=== PATIENT | male | born 1980 | race Caucasian/White ===

== ENCOUNTER 2025-02-01 11:21 | Emergency (ER) | payer OTHER, SELFPAY ==
[2025-02-01 11:28] VITALS: BP 173/111; PULSE 78; RESP 16; TEMP 36.8; O2SAT 98; BMI 32.5
--- NOTE | 2025-02-01 11:37 | XRR_ITS ---
PROCEDURE INFORMATION: Exam: XR Right Elbow Exam date and time: 02/01/2025 11:48 AM Age: 44 years old Clinical indication: Right; Pain in RT elbow TECHNIQUE: Imaging protocol: Radiologic exam of the right elbow. Views: 3 or more views. COMPARISON: No relevant prior studies available. FINDINGS: Bones/joints: Normal. Soft tissues: Normal. XR/XR elbow RT min 3V* [id number] IMPRESSION: No acute findings.
--- NOTE | 2025-02-01 11:40 | ED_ITS ---
HPI - Extremity Problem General: Chief complaint: Extremity Injury, Upper Stated complaint: va sent for torn bicep Time Seen by Provider: 02/01/25 11:23 History of Present Illness: 44-year-old male presents to the emergen cy room with complaints of arm pain. He was doing some heavy lifting last night felt a popping sensation in his right arm has some deformity of the biceps muscle. Moderate pain denies any other injury. Related Data Previous Rx's ?Medication ?Instructions ?Recorded diclofenac sodium 75 mg 75 mg PO Q12H PRN pain #20 t abs 02/01/25 tablet,delayed release Allergies Allergy/AdvReac Type Severity Reaction Status Date / Time No Known Allergies Allergy Verified 02/01/25 11:30 Physical Exam Extremity: OTHER: Distorted biceps muscle in the right arm. Hook test positive patient has disruption of the distal bicep tendon. Course Vital Signs: Vital signs: Vital Signs Temperature 98.3 F 02/01/25 11:28 Pulse Rate 74 02/01/25 12:04 Respiratory Rate 16 02/01/25 11:28 Blood Pressure 161/101 02/01/25 12:04 Pulse Oximetry 99 02/01/25 12:04 Oxygen Delivery Me thod Room Air 02/01/25 11:28 MDM - Extremity (Nontraumatic) Medical Decision Making Discussed with Dr. Townsend who is on-call referred to him early next week. Recommends outpatient follow-up. X-ray does not show any avulsion fracture Lab Data Radiology Impressions Elbow X-Ray 02/01/25 11:37 IMPRESSION: No acute findings. All radiology interpretation(s) finalized by discharge Discharge Plan Discharge Patient Disposition: Home Clinical Impression: Tear of distal tendon of biceps Condition: Stable Prescriptions: New diclofenac sodium 75 mg tablet,delayed release (DR/EC) 75 mg PO Q12H PRN (Reason: pain) Qty: 20 0RF Discharge Orders: Discharge ED (Routine); Ordered 02/01/25 Ordered By: Diomedes Henderson Discharge Diet: Usual diet Discharge Activity: Resume usual activity Patient Instructions: Opioid Safety, Pain Management, Patient Portal & Bennie Instructions Activity Restrictions/Additional Instructions: Thank you for choosing [facility] for your healthcare needs today. It is very important that you follow up as instructed or that you return to the Emergency Department should you have concerns or if your condition changes or worsens in any way. Emergency department visits are focused on emergent conditions, in some cases you may require further evaluation on an outpatient basis. You were seen in the emergency room for a biceps tendon rupture. Placed in a sling for comfort you can use diclofenac as needed. facilities project manager will make arrangements for you to follow-up with orthopedics in the next 2 to 3 days. (Please note that included in your discharge packet is information concerning opioid safety and pain management. This information is given to all patients were discharged from the ER regardless of their discharge diagnosis or the medicines they usually take or are prescribed.) Print Language: Slovenian Coding Level of Care Code ED Heading Up Machine Operator for Lisa Wen
[2025-02-01 12:04] VITALS: BP 161/101; PULSE 74; O2SAT 99
--- NOTE | 2025-02-01 12:46 | DCPLANNER ---
messaged ortho for er f/u
--- NOTE | 2025-02-04 12:49 | PC.SOCIAL ---
Records sent to [place] for auth for ortho f/u.
== END 2025-02-01 12:05 | disposition home or self-care (01) ==
PROVIDERS: Emergency Provider Family Medicine
DX: S46.211A Strain of muscle, fascia and tendon of other parts of biceps, right arm, initial encounter (principal); X50.0XXA Overexertion from strenuous movement or load, initial encounter
CPT/HCPCS: 73080; 96372; 99284; A4565; J1885

== ENCOUNTER → 2025-02-05 09:19 | Outpatient (BNVA) | payer OTHER, SELFPAY | PROVIDERS: PCP Family Medicine Geriatric Medicine; Visit Provider Orthopaedic Surgery | DX: S46.211A Strain of muscle, fascia and tendon of other parts of biceps, right arm, initial encounter (principal); X58.XXXA Exposure to other specified factors, initial encounter | CPT/HCPCS: 99204 ==

== ENCOUNTER 2025-02-07 09:13 | Outpatient (CLI) | payer OTHER, SELFPAY ==
--- NOTE | 2025-02-07 10:15 | MRR_ITS ---
PROCEDURE INFORMATION: Exam: MR Right Upper Extremity Joint Without Contrast; Elbow Exam date and time: 02/07/2025 9:28 AM Age: 44 years old Clinical indication: Injury or trauma; Swelling (edema); Arm, upper and elbow; Right; Injury date: 01/31/25; Injury details: Lifting concrete felt snap in elbow/arm. ; Additional info: Right distal bicep tendon tear, prior authorization in progress TECHNIQUE: Imaging protocol: Magnetic resonance imaging of the right upper extremity without contrast. Exam focused on the elbow. COMPARISON: CR XR elbow RT min 3V* [id number] 02/01/2025 11:48 AM FINDINGS: Bones/joints: No acute fracture is seen. Ulnar (medial) collateral ligament: The ulnar collateral ligament is intact. Radial collateral ligament of the elbow: The radial collateral ligament is intact. The lateral ulnar collateral ligament is intact. Annular ligament of the radius: The annular ligament is not well assessed. Tendon of the biceps brachii: There is a complete tear of the biceps tendon with tendinous retraction by approximately 6 cm. There is mild edema/fluid and blood products at site of tendon tear. Tendon of the brachialis: Mild strain of the brachialis tendon. Triceps tendon: The triceps tendon is intact. Common flexor tendon: The common flexor tendon is intact. Common extensor tendon: Moderate tendinosis of the common extensor tendon) with partial-thickness tearing proximally. Soft tissues: Mild ventral subcutaneous edema. MR/MR elbow RT wo con* [id number] IMPRESSION: 1. Complete tear of the biceps tendon with tendinous retraction by approximately 6 cm. Mild edema/fluid and blood products at site of tendon tear. 2. Mild strain of the brachialis tendon. 3. Moderate tendinosis of the common extensor tendon) with partial-thickness tearing proximally.
== END 2025-02-07 09:14 | disposition home or self-care (01) ==
LOC: RAD 09:14
PROVIDERS: PCP Family Medicine Geriatric Medicine; Visit Provider Orthopaedic Surgery
DX: S46.211D Strain of muscle, fascia and tendon of other parts of biceps, right arm, subsequent encounter (principal); X58.XXXD Exposure to other specified factors, subsequent encounter
CPT/HCPCS: 73221; 99213

== ENCOUNTER 2025-02-08 10:34 | Day surgery (SDC) | payer OTHER, SELFPAY ==
[2025-02-08] VITALS (15 sets, daily range): BP systolic 109–141; BP diastolic 73–106; PULSE 75–89; RESP 10–20; TEMP 36.6–37.6; O2SAT 93–100; BMI 32.5
--- NOTE | 2025-02-08 10:53 | P.ANESASSM_ITS ---
Pre-Anesthetic Assessment Height/Weight: Height 1.78 m Operation Date: 02/08/25 12:00 Proposed Procedures p distal open bicep tendon repair(Right) - Mack Townsend MD Familial anesthetic complications: None Was Beta Phuong taken within 24 hours: N/A Was Clonidine taken within 24 hours: N/A Last intake: > 8 hrs Social No alcohol and No tobacco Exam alert, oriented x 3, clear to auscultation bilaterally and regular rate & rhythm Airway Dentition: full Anesthetic Plan ASA status: 3 Anesthesia: General Risk of > 500 ml blood loss (7ml/kg in children): No Medications/Allergies Home Medications ?Medication ?Instructions ?Recorded ?Confirmed ?Last Taken ?Type diclofenac sodium 75 mg 75 mg PO Q12H PRN pain #20 t abs 02/01/25 02/08/25 Unknown Rx tablet,delayed release Allergies Allergy/AdvReac Type Severity Reaction Status Date / Time No Known Allergies Allergy Verified 02/08/25 10:45 PFSH Anesthesia Social History Smoking and tobacco/nicotine status: never used tobacco/nicotine
[2025-02-08] MEDS: ceFAZolin 2,000 mg SDV 2000 MG IVP (12:13)
--- NOTE | 2025-02-08 12:15 | W.PM.OPSUD ---
Surgery/Procedure H&P Update DATE OF PROCEDURE: February 08, 2025 DATE H&P PERFORMED: 02/01/25 H&P UPDATE INFORMATION: I have reviewed H&P completed within last 30 days, I have examined patient prior to procedure and No changes to prior documentation PREOP DIAGNOSIS: Torn distal biceps tendon right arm PLANNED PROCEDURE: Operation Date: 02/08/25 12:00 Proposed Procedures p distal open bicep tendon repair(Right) - Mack Townsend MD
[2025-02-08] MEDS: BUPivacaine 0.5% INJ 30 mL XX (13:19)
--- NOTE | 2025-02-08 13:19 | PM.OP ---
Operative Report Date of procedure: February 08, 2025 Surgeon: Mack Townsend MD Procedure: Preoperative diagnosis: Ruptured proximal biceps tendon right arm Postoperative diagnosis: Same Procedure: Open repair of distal biceps tendon right arm Surgeon: Mack Townsend MD Cushion Assembler: JALEN Rubalcava's assistance was necessary for assistance during the procedure, wound closure, dressing placement, placement of brace Anesthesia: General EBL: None Tourniquet time: 31 minutes at 250 mmHg Indications: Maximus is a 44-year-old white male who was lifting a heavy piece of concrete approxi-1 week ago when he felt something given his right elbow and was unable to hold weight. Subsequently seen in the emergency room where he was diagnosed he had a distal biceps tendon tear of the right upper extremity. Subsequently followed up in the orthopedic clinics and clinical exam was consistent with this. Patient then had an MRI that demonstrated complete rupture of the biceps tendon. Once this was identified via the MRI as well as clinical exam patient was offered a repair of his torn biceps tendon of the right elbow. He is right-hand dominant and necessary to have strength and mobility in this arm. All risk benefits treatment alternatives were discussed with him and he was agreeable to this at this time. Procedure: After obtaining her consent patient taken the operating room placed in the op table supine position general anesthetic administered. Once good anesthesia achieved pneumatic cuffs placed on proximal right arm and right arm was prepped and draped usual fashion. After surgical timeout arm was exsanguinated with Esmarch wrap and pneumatic cuff inflated to 250 mmHg. Perpendicular incision was made to the axis of the forearm just a couple centimeters below the flexion crease of the elbow. Sharp dissected gone down to subcutaneous tissue electrocautery used to hemostasis. Vein complex in the area was tied off with 2-0 Vicryl's and then divided to expose the antecubital region and path of the biceps tendon. By digital palpation biceps tendon was able to be brought back down into the wound site with complete tear noted. Biceps tendon was controlled with a Allis clamp. At this point with the arm fully supinated digital dissection was taken down to find the radial tubercle. Soft tissue was raised off of their with electrocautery. Appropriate retractors placed. At this point using a fixation device from [employer] a whipstitch was placed through the distal biceps tendon and out its distal end. Edges of the biceps were then trimmed of all nonviable tendon material. Attention was turned towards the radial tubercle and a guidepin was drilled through the central portion of this all the way through both cortices. Subsequent drill was placed over this guidepin and taken on down to penetrate the superior cortex only. Subsequently sutures that came out of the end of the biceps tendon was now placed through the toggle and appropriate weave fashion. Hermes was then placed on down into the arm through the drill hole to the opposite cortex. Once displaced this was detached from its applicator and drawn back up as tension was placed on the sutures to toggle it into place. Good fixation was achieved and asked tension was applied to the sutures biceps tendon was brought down into the trough that had been drilled initially. Once there a single stitch of this bicep suture was then placed back through it with a curved needle and then both ends of the suture were tied down to each other for fixation of the tendon and the trough on the radial tubercle. Elbow suture range of motion demonstrated stable repair. Areas washed with copious amounts of sterile irrigation to remove bone fragments as well as to irrigate the area. Subsequently 2-0 Vicryl subcutaneous sutures were placed to bring skin edges back. Subsequently 4-0 Monocryl was placed subcuticularly to close the wound. Wounds are clean and dry dressed with Xeroform gauze sterile gauze dressing Kerlix wrap and Chepe wrap for compression. Patient placed in a locking elbow brace at 90 degrees awakened and transferred to cover room stable condition
[2025-02-08] MEDS: fentaNYL 50 mcg/mL INJ 2mL IVP ×2 (14:10→14:22)
[2025-02-08] MEDS: HYDROcodone-acetaminophen 5-325 mg Tablet 1 TAB PO (14:57)
--- NOTE | 2025-02-08 15:35 | ANE.PACU2 ---
Inpatient post-anesthesia follow up: Airway intact: Yes Vital signs: Temperature 97.8 F Pulse Rate 76 Respiratory Rate 18 Blood Pressure 140/95 Pulse Oximetry 93 Oxygen Delivery Me thod Room Air Oxygen Flow Rate 2 Fraction of Inspir ed Oxygen Hydration adequate: Yes Nausea and vomiting: No Pain level: 1 Mental status: Baseline
== END 2025-02-08 15:35 | disposition home or self-care (01) ==
PROVIDERS: PCP Family Medicine Geriatric Medicine; Visit Provider Orthopaedic Surgery
PROC: (CPT 24341; principal; 2025-02-08 12:00)
DX: S46.211A Strain of muscle, fascia and tendon of other parts of biceps, right arm, initial encounter (principal); X50.0XXA Overexertion from strenuous movement or load, initial encounter
CPT/HCPCS: 24341; C1713; J0690; J1100; J2250; J2405; J2704; J3010; J3490; J7030; J9999

== ENCOUNTER → 2025-02-21 09:33 | Outpatient (BNVA) | payer OTHER, SELFPAY | PROVIDERS: PCP Family Medicine Geriatric Medicine; Visit Provider Orthopaedic Surgery | DX: Z98.890 Other specified postprocedural states (principal) | CPT/HCPCS: 99024 ==

== ENCOUNTER → 2025-03-08 11:45 | Outpatient (BNVA) | payer OTHER, SELFPAY | PROVIDERS: PCP Family Medicine Geriatric Medicine; Visit Provider Orthopaedic Surgery | DX: Z98.890 Other specified postprocedural states (principal) | CPT/HCPCS: 99024 ==

== ENCOUNTER → 2025-03-22 10:59 | Outpatient (BNVA) | payer OTHER, SELFPAY | PROVIDERS: PCP Family Medicine Geriatric Medicine; Visit Provider Orthopaedic Surgery | DX: Z98.890 Other specified postprocedural states (principal) | CPT/HCPCS: 99024 ==

== ENCOUNTER 2025-04-02 13:12 | Outpatient (RCR) | payer OTHER, SELFPAY | END 2025-04-21 23:59 | disposition home or self-care (01) | LOC: SPT 13:12 | PROVIDERS: Visit Provider Orthopaedic Surgery | DX: Z98.890 Other specified postprocedural states (principal) | CPT/HCPCS: 97110; 97161 ==

== ENCOUNTER → 2025-04-05 08:57 | Outpatient (BNVA) | payer OTHER, SELFPAY | PROVIDERS: PCP Family Medicine Geriatric Medicine; Visit Provider Orthopaedic Surgery | DX: Z98.890 Other specified postprocedural states (principal) | CPT/HCPCS: 99024 ==

== ENCOUNTER 2025-04-22 05:00 | Outpatient (RCR) | payer OTHER, SELFPAY | END 2025-05-22 23:59 | disposition home or self-care (01) | LOC: SPT 05:00 | PROVIDERS: PCP Family Medicine Geriatric Medicine; Visit Provider Orthopaedic Surgery | DX: S46.101D Unspecified injury of muscle, fascia and tendon of long head of biceps, right arm, subsequent encounter (principal); S46.211D Strain of muscle, fascia and tendon of other parts of biceps, right arm, subsequent encounter; X58.XXXD Exposure to other specified factors, subsequent encounter | CPT/HCPCS: 97110 ==

== ENCOUNTER 2025-05-03 09:26 | Outpatient (CLI) | payer OTHER, SELFPAY | END 2025-05-03 09:27 | disposition home or self-care (01) | LOC: SPT 09:27 | PROVIDERS: PCP Family Medicine Geriatric Medicine; Visit Provider Orthopaedic Surgery | DX: Z46.89 Encounter for fitting and adjustment of other specified devices (principal); M25.531 Pain in right wrist | CPT/HCPCS: 99024; L3908 ==